=== PATIENT | female | born 1960 | race Caucasian/White ===

== ENCOUNTER 2017-07-13 12:21 | Inpatient (IN) | payer MEDICARE ==
[2017-07-13] MEDS ORDERED: SODIUM CHLORIDE 0.9% 500 ML IV STA (12:51)
[2017-07-13] MEDS ORDERED: SODIUM CHLORIDE 0.9% 1,000 ML IV STA (12:51)
--- NOTE | 2017-07-13 13:20 | ED ---
General Adult HPI - General Chief complaint: Neuro Symptoms/Deficit Stated complaint: Memory Loss,Dizziness Source: patient, RN notes reviewed, old records reviewed Mode of arrival: ambulatory Limitations: no limitations - History of Present Illness Initial comments: This is a 57-year-old female to the ER for evaluation regarding possible neurological. Patient having difficulty with memory retrograde amnesia difficulty finding her words and recent difficulty with walking, ataxia. Dizziness. Patient has history of high cholesterol no family history of heart disease her she herself is no high blood pressure [place] no diabetes no smoking history. Patient denies any weakness in arms or legs. Denies any other significant neurological complaint. No recent head trauma. Patient does suffer from some neck issues and chronic neck pain is Exie scheduled for MRI recently secondary to recent symptoms of dizziness and near syncope she's had with her neck issues. Otherwise patient denies any medications. No drugs or alcohol - Related Data Home Medications Medication Instructions Recorded Confirmed ARIPiprazole [ARIPiprazole Odt] 10 mg PO DAILY 07/13/17 07/13/17 Baclofen [Lioresal] 20 mg PO BID 07/13/17 07/13/17 Cholecalciferol [Vitamin D3] 5,000 unit PO DAILY 07/13/17 07/13/17 Levothyroxine Sodium [Synthroid] 75 mcg PO DAILY 07/13/17 07/13/17 Methylphenidate HCl [Ritalin] 20 mg PO DAILY 07/13/17 07/13/17 Omeprazole [Omeprazole] 40 mg PO DAILY 07/13/17 07/13/17 Rizatriptan Benzoate [Rizatriptan] 10 mg PO DAILY PRN 07/13/17 07/13/17 Simvastatin [Zocor] 40 mg PO HS 07/13/17 07/13/17 clonazePAM [KlonoPIN] 1 mg PO DAILY PRN 07/13/17 07/13/17 traMADol HCL [Ultram] 100 mg PO TID PRN 07/13/17 07/13/17 Allergies Allergy/AdvReac Type Severity Reaction Status Date / Time No Known Allergies Allergy Verified 07/13/17 13:16 Review of Systems ROS Statement: Those systems with pertinent positive or pertinent negative responses have been documented in the HPI. ROS Other: All systems not noted in ROS Statement are negative. Past Medical History Past Medical History: Fibromyalgia, Hyperlipidemia, Thyroid Disorder Additional Past Medical History / Comment(s): osteoporosis History of Any Multi-Drug Resistant Organisms: None Reported Past Surgical History: Hysterectomy, Orthopedic Surgery Past Psychological History: Anxiety, Depression Smoking Status: Never smoker Past Alcohol Use History: None Reported Past Drug Use History: None Reported General Exam - General Exam Comments Initial Comments: NIH of 0 Limitations: no limitations General appearance: alert, in no apparent distress Head exam: Present: atraumatic, normocephalic, normal inspection Eye exam: Present: normal appearance, PERRL, EOMI. Absent: scleral icterus, conjunctival injection, periorbital swelling ENT exam: Present: normal exam, mucous membranes moist Neck exam: Present: normal inspection. Absent: tenderness, meningismus, lymphadenopathy Respiratory exam: Present: normal lung sounds bilaterally. Absent: respiratory distress, wheezes, rales, rhonchi, stridor Cardiovascular Exam: Present: regular rate, normal rhythm, normal heart sounds. Absent: systolic murmur, diastolic murmur, rubs, gallop, clicks GI/Abdominal exam: Present: soft, normal bowel sounds. Absent: distended, tenderness, guarding, rebound, rigid Extremities exam: Present: normal inspection, full ROM, normal capillary refill. Absent: tenderness, pedal edema, joint swelling, calf tenderness Back exam: Present: normal inspection Neurological exam: Present: alert, oriented X3, CN II-XII intact Psychiatric exam: Present: normal affect, normal mood Skin exam: Present: warm, dry, intact, normal color. Absent: rash Course Vital Signs 07/13/17 07/13/17 07/13/17 12:28 13:33 14:07 Temperature 97.8 F Pulse Rate 74 98 87 Respiratory 16 18 18 Rate Blood Pressure 115/57 128/78 111/78 O2 Sat by Pulse 98 98 98 Oximetry - Reevaluation(s) Reevaluation #1: 07/13/17 13:20 Patient's memory, identification and voice and speech are improved Reevaluation #2: 07/13/17 14:29 All symptoms at this time appear to be resolved EKG Findings - EKG Comments: EKG Findings:: EKG shows normal sinus rhythm rate of 61, AL 166, QRS 76, QTC 404 Medical Decision Making - Medical Decision Making 57 female DF for evaluation of CVA like symptoms. Patient having short-term memory loss, retrograde amnesia, difficulty with speech and expressive aphasia, recent dizziness and ataxia. Patient will be admitted for neurological evaluation concerning CVA - Lab Data Result diagrams: 07/13/17 12:48 07/13/17 12:48 Lab Results 07/13/17 07/13/17 07/13/17 Range/Units 12:48 12:48 12:48 WBC 4.1 (3.8-10.6) k/uL RBC 4.42 (3.80-5.40) m/uL Hgb 13.5 (11.4-16.0) gm/dL Hct 41.2 (34.0-46.0) % MCV 93.3 (80.0-100.0) fL MCH 30.5 (25.0-35.0) pg MCHC 32.7 (31.0-37.0) g/dL RDW 12.6 (11.5-15.5) % Plt Count 174 (150-450) k/uL Neutrophils % 65 % Lymphocytes % 26 % Monocytes % 5 % Eosinophils % 1 % Basophils % 1 % Neutrophils # 2.7 (1.3-7.7) k/uL Lymphocytes # 1.1 (1.0-4.8) k/uL Monocytes # 0.2 (0-1.0) k/uL Eosinophils # 0.0 (0-0.7) k/uL Basophils # 0.0 (0-0.2) k/uL PT (9.0-12.0) sec INR (<1.2) APTT (22.0-30.0) sec Sodium 143 (137-145) mmol/L Potassium 4.0 (3.5-5.1) mmol/L Chloride 105 (98-107) mmol/L Carbon Dioxide 27 (22-30) mmol/L Anion Gap 11 mmol/L BUN 13 (7-17) mg/dL Creatinine 0.70 (0.52-1.04) mg/dL Est GFR (MDRD) Af Amer >60 (>60 ml/min/1.73 sqM) Est GFR (MDRD) Non-Af >60 (>60 ml/min/1.73 sqM) Glucose 113 H (74-99) mg/dL Plasma Lactic Acid [place] (0.7-2.0) mmol/L Calcium 9.9 (8.4-10.2) mg/dL Phosphorus 3.4 (2.5-4.5) mg/dL Magnesium 1.9 (1.6-2.3) mg/dL Total Bilirubin 0.5 (0.2-1.3) mg/dL AST 25 (14-36) U/L ALT 38 (9-52) U/L Alkaline Phosphatase 82 (38-126) U/L Total Creatine Kinase 42 (30-135) U/L CK-MB (CK-2) 0.4 (0.0-2.4) ng/mL CK-MB (CK-2) Rel Index 1.0 Troponin I <0.012 (0.000-0.034) ng/mL Total Protein 6.8 (6.3-8.2) g/dL Albumin 4.3 (3.5-5.0) g/dL 07/13/17 07/13/17 Range/Units 12:48 13:15 WBC (3.8-10.6) k/uL RBC (3.80-5.40) m/uL Hgb (11.4-16.0) gm/dL Hct (34.0-46.0) % MCV (80.0-100.0) fL MCH (25.0-35.0) pg MCHC (31.0-37.0) g/dL RDW (11.5-15.5) % Plt Count (150-450) k/uL Neutrophils % % Lymphocytes % % Monocytes % % Eosinophils % % Basophils % % Neutrophils # (1.3-7.7) k/uL Lymphocytes # (1.0-4.8) k/uL Monocytes # (0-1.0) k/uL Eosinophils # (0-0.7) k/uL Basophils # (0-0.2) k/uL PT 10.2 (9.0-12.0) sec INR 1.0 (<1.2) APTT 22.3 (22.0-30.0) sec Sodium (137-145) mmol/L Potassium (3.5-5.1) mmol/L Chloride (98-107) mmol/L Carbon Dioxide (22-30) mmol/L Anion Gap mmol/L BUN (7-17) mg/dL Creatinine (0.52-1.04) mg/dL Est GFR (MDRD) Af Amer (>60 ml/min/1.73 sqM) Est GFR (MDRD) Non-Af (>60 ml/min/1.73 sqM) Glucose (74-99) mg/dL Plasma Lactic Acid [place] 1.1 (0.7-2.0) mmol/L Calcium (8.4-10.2) mg/dL Phosphorus (2.5-4.5) mg/dL Magnesium (1.6-2.3) mg/dL Total Bilirubin (0.2-1.3) mg/dL AST (14-36) U/L ALT (9-52) U/L Alkaline Phosphatase (38-126) U/L Total Creatine Kinase (30-135) U/L CK-MB (CK-2) (0.0-2.4) ng/mL CK-MB (CK-2) Rel Index Troponin I (0.000-0.034) ng/mL Total Protein (6.3-8.2) g/dL Albumin (3.5-5.0) g/dL - Radiology Data Radiology results: report reviewed (CT brain is negative for acute disease), image reviewed Disposition Clinical Impression: Cerebrovascular accident Disposition: ADMITTED IP TO THIS [facility] Condition: Fair Referrals: Monie Calzada DO [Primary Care Provider] - 1-2 days
[2017-07-13 13:22] LABS: Basophils % (A) 1 %; CH 31.1; CHCM 33.5; Eosinophils % (A) 1 %; HCT 41.2 % (34.0-46.0); HDW 2.57; HGB 13.5 gm/dL (11.4-16.0); Luc # (Auto) 0.08; Luc % (Auto) 2; Lymphocytes # (A) 1.1 k/uL (1.0-4.8); Lymphocytes % (A) 26 %; MCH 30.5 pg (25.0-35.0); MCHC 32.7 g/dL (31.0-37.0); MCV 93.3 fL (80.0-100.0); Mean Platelet Volume 9.7; Monocytes # (A) 0.2 k/uL (0-1.0); Monocytes % (A) 5 %; Neutrophils # (A) 2.7 k/uL (1.3-7.7); Neutrophils % (A) 65 %; RBC 4.42 m/uL (3.80-5.40); RDW 12.6 % (11.5-15.5); WBC 4.1 k/uL (3.8-10.6); WBC (Perox) 4.13
[2017-07-13 13:35] LABS: ALT 38 U/L (9-52); AST 25 U/L (14-36); Alkaline Phosphatase 82 U/L (38-126); Anion Gap 11 mmol/L; Blood Urea Nitrogen 13 mg/dL (7-17); Calcium 9.9 mg/dL (8.4-10.2); Carbon Dioxide 27 mmol/L (22-30); Chloride 105 mmol/L (98-107); Glucose 113 mg/dL (74-99); Magnesium 1.9 mg/dL (1.6-2.3); Non-African American GFR(MDRD) >60 (>60 ml/min/1.73 sqM); Phosphorus 3.4 mg/dL (2.5-4.5); Sodium 143 mmol/L (137-145); Total Bilirubin 0.5 mg/dL (0.2-1.3); Total Protein 6.8 g/dL (6.3-8.2)
[2017-07-13 13:37] LABS: Partial Thromboplastin Time 22.3 sec (22.0-30.0); Prothrombin Time 10.2 sec (9.0-12.0)
--- NOTE | 2017-07-13 13:39 | CT ---
EXAMINATION TYPE: CT brain wo con DATE OF EXAM: 07/13/2017 COMPARISON: NONE INDICATION: Memory loss/Dizziness DLP: 1054.2 mGycm, Automated exposure control for dose reduction was used. CONTRAST: None CT of the brain is performed utilizing 3 mm thick sections through the posterior fossa and 3 mm thick sections through the remaining calvarium. Study is performed within 24 hours of arrival to the hosp ital. No abnormal hyperdensity is present to suggest an acute intracranial hemorrhage. No mass lesion is evident. No acute infarcts are evident. Ventricles and sulci are appropriate for the patient age. Paranasal sinuses and mastoid air cells within the [id number] are clear. IMPRESSIONS: 1. Normal CT Brain
[2017-07-13 13:41] LABS: Creatine Kinase 42 U/L (30-135)
[2017-07-13 13:54] LABS: Creatine Kinase MB 0.4 ng/mL (0.0-2.4); Troponin I <0.012 ng/mL (0.000-0.034)
[2017-07-13] MEDS ORDERED: ASPIRIN 325 MG TAB PO STA (14:24)
--- NOTE | 2017-07-13 15:48 | US ---
EXAMINATION TYPE: US carotid duplex BILAT DATE OF EXAM: 07/13/2017 COMPARISON: CLINICAL HISTORY: Stenosis. Memory loss EXAM MEASUREMENTS: RIGHT: Peak Systolic Velocity (PSV) cm/sec ----- Right CCA: 80.1 ----- Right ICA: 80.1 ----- Right ECA: 61.9 ICA/CCA ratio: 1.0 RIGHT: End Diastole cm/sec ----- Right CCA: 19.3 ----- Right ICA: 35.1 ----- Right ECA: 6.9 LEFT: Peak Systolic Velocity (PSV) cm/sec ----- Left CCA: 88.5 ----- Left ICA: 66.9 ----- Left ECA: 105.6 ICA/CCA ratio: 0.8 LEFT: End Diastole cm/sec ----- Left CCA: 27.6 ----- Left ICA: 20.8 ----- Left ECA: 9.8 VERTEBRALS (direction of flow): Right Vertebral: Antegrade Left Vertebral: Antegrade Rhythm: Normal No wall thickening, plaque, elevated velocities or significant stenosis seen Grayscale, color Doppler, spectral Doppler imaging performed of the carotid arteries IMPRESSION: No hemodynamic significant stenosis of the proximal internal carotid arteries bilaterall y by Doppler criteria, an indirect measurement of carotid stenosis
[2017-07-13 17:00] LABS: Appearance,Urine Clear (Clear); Bilirubin,Urine Negative (Negative); Glucose,Urine (UA) Negative (Negative); Ketones,Urine 1+ (Negative); Leukocyte Esterase,Urine Negative (Negative); Nitrite,Urine Negative (Negative); Protein,Urine Negative (Negative); Specific Gravity,Urine 1.005 (1.001-1.035); UA Billing (MACRO vs. MICRO) CHEM; Urobilinogen,Urine <2.0 mg/dL (<2.0)
[2017-07-13] MEDS ORDERED: clonazePAM 1 MG TAB PO PRN (17:53)
[2017-07-13] MEDS: SODIUM CHLORIDE 0.9% 1,000 ML IV SCH ×2 (19:00→23:49)
[2017-07-13] MEDS: BACLOFEN 10 MG TAB PO SCH (20:56)
[2017-07-13] MEDS: ATORVASTATIN 20 MG TAB PO SCH (20:56)
[2017-07-13] MEDS: traMADol 50 MG TAB PO PRN (23:46)
--- NOTE | 2017-07-14 00:51 | P.CNNES ---
History of Present Illness Consult date: 07/13/17 Reason for Consult: Patient admitted with memory loss and ataxia. History of Present Illness: This patient is a 57-year-old right-handed white female who apparently 2 weeks ago began experiencing symptoms of near syncope and anxiety. The symptoms seemed to progress over the 2 weeks and apparently yesterday she awoke at 4 AM in the morning and alerted her . According to the patient she began walking around the house opening and closing closet doors at 4 AM in the morning. Her tried to assist her and get her back to bed but she seemed to be very confused and disoriented. At times she also was not sure where her was or what his name was. The patient states that she was able to go to bed and woke up in the morning and had no memory of these events that had occurred at 4 AM in the morning. Her was very confused as to what had happened early in the morning when she was walking around the house and making no sense. Apparently the patient has a history of chronic neck pain. She is followed in the outpatient neurology clinic with Dr. Edgar who ordered an MRI of the cervical spine to be done. That is scheduled to be done early next week. Apparently she has been having symptoms of near syncope and dizziness. Her dizziness is describes as a sense of disequilibrium. The patient states that she gets episodes of tunnel vision and loses her sense of balance. She also feels as if she may nearly pass out. This has happened on multiple occasions over the past 2 weeks. Her did contact their daughter who is a nurse. She recommended that her mother should be taken immediately to the emergency room for evaluation early this morning. She was seen in the ER by Dr. Wilks, around 10 AM this morning. She was sent for a computed tomography scan of the brain which was reported normal. She underwent a carotid Doppler ultrasound which revealed no significant carotid artery stenosis. Patient was scheduled in the ER for an MRI of the brain with and without gadolinium. This hopefully will be done tomorrow morning. The patient states that she does suffer from migraine headaches as well as fibromyalgia. She is on disability due to these 2 conditions. She denies any previous history of seizures. By the time she was evaluated in the ER her symptoms of memory loss was improving. She was recommended admission to the hospital for further management. The ER physician felt the patient had evidence suggesting retrograde amnesia. She was also noted initially on admission is having signs of expressive aphasia. For these reasons she is being scheduled for MRI of the brain for further evaluation tomorrow. Neurology is now been consulted for further evaluation and recommendations. Review of Systems Constitutional: Denies chills, Denies fever Eyes: denies blurred vision, denies pain Ears, nose, mouth and throat: Denies headache, Denies sore throat Cardiovascular: Denies chest pain, Denies shortness of breath Respiratory: Denies cough Gastrointestinal: Denies abdominal pain, Denies diarrhea, Denies nausea, Denies vomiting Genitourinary: Denies dysuria, Denies hematuria Musculoskeletal: Denies myalgias Integumentary: Denies pruritus, Denies rash Neurological: Reports ataxia, Reports balance difficulties, Reports change in speech, Reports confusion, Reports gait dysfunction, Reports lack of coordination, Reports motor disturbance, Reports paresthesias, Reports tingling , Reports vertigo, Denies numbness, Denies weakness Psychiatric: Reports disorientation, Reports sleep disturbances, Denies anxiety , Denies depression Endocrine: Denies fatigue, Denies weight change Past Medical History Past Medical History: Fibromyalgia, Hyperlipidemia, Thyroid Disorder Additional Past Medical History / Comment(s): Chronic cervical pain with vertigo /near syncope-was to have MRI next week, chronic migraines, hypothyroid, osteoporosis. History of Any Multi-Drug Resistant Organisms: None Reported Past Surgical History: Cholecystectomy, Hysterectomy, Orthopedic Surgery Additional Past Surgical History / Comment(s): R partial knee replacement, colonoscopy. Past Anesthesia/Blood Transfusion Reactions: Postoperative Nausea & Vomiting ( PONV) Past Psychological History: Anxiety, Depression Additional Psychological History / Comment(s): Pt resides with her spouse. She is independent. Smoking Status: Never smoker Past Alcohol Use History: None Reported Past Drug Use History: None Reported - Past Family History Father Family Medical History: Cancer Additional Family Medical History / Comment(s): Father of lung cancer in his mid 50's. He was a heavy smoker. Mother Family Medical History: No Reported History Additional Family Medical History / Comment(s): Mother is 72 yrs old. Medications and Allergies Home Medications Medication Instructions Recorded Confirmed Type ARIPiprazole [ARIPiprazole Odt] 10 mg PO DAILY 07/13/17 07/13/17 History Baclofen [Lioresal] 20 mg PO BID 07/13/17 07/13/17 History Cholecalciferol [Vitamin D3] 5,000 unit PO DAILY 07/13/17 07/13/17 History Levothyroxine Sodium [Synthroid] 75 mcg PO DAILY 07/13/17 07/13/17 History Methylphenidate HCl [Ritalin] 20 mg PO DAILY 07/13/17 07/13/17 History Omeprazole [Omeprazole] 40 mg PO DAILY 07/13/17 07/13/17 History Rizatriptan Benzoate [Rizatriptan] 10 mg PO DAILY PRN 07/13/17 07/13/17 History Simvastatin [Zocor] 40 mg PO HS 07/13/17 07/13/17 History clonazePAM [KlonoPIN] 1 mg PO DAILY PRN 07/13/17 07/13/17 History traMADol HCL [Ultram] 100 mg PO TID PRN 07/13/17 07/13/17 History Allergies Allergy/AdvReac Type Severity Reaction Status Date / Time No Known Allergies Allergy Verified 07/13/17 13:16 Physical Examination - Vital Signs Vital Signs: Vital Signs Temp Pulse Pulse Pulse Resp BP BP 07/13/17 20:00 99.2 F 78 18 106/60 07/13/17 15:24 97 F L 61 17 107/52 07/13/17 15:10 97.4 F L 07/13/17 14:24 62 18 122/58 07/13/17 14:07 87 18 111/78 07/13/17 13:33 98 18 128/78 07/13/17 12:28 97.8 F 74 16 115/57 Pulse Ox 07/13/17 20:00 98 07/13/17 15:24 100 07/13/17 15:10 07/13/17 14:24 100 07/13/17 14:07 98 07/13/17 13:33 98 07/13/17 12:28 98 Intake and Output 07/13/17 07/13/17 07/13/17 06:59 14:59 22:59 Output Total 200 Balance -200 Output: Urine 200 Other: Voiding Method Toilet # Voids 1 Weight 49.895 kg Patient Weight 07/14/17 06:59 Weight 49.895 kg - Constitutional General appearance: average body habitus, cooperative - EENT EENT: PERRL, mucous membranes moist - Respiratory Respiratory: lungs clear, normal breath sounds - Cardiovascular Cardiovascular: regular rate, normal S1, normal S2 Extremities: no peripheral edema bilaterally - Gastrointestinal Gastrointestinal: normoactive bowel sounds - Integumentary Integumentary: normal - Neurologic Cranial nerve examination: PERRL, EOMI, VFF, V1/V2/V3 grossly intact, face symmetric, tongue midline, intact gag reflex, intact cough reflex, intact corneal reflex, normal palatal elevation Speech examination: intact Sensorimotor examination: intact Detailed motor examination: grossly full strength in all extremities Motor examination - right side: 5/5: biceps, triceps, wrist flexion, wrist extension, horticultural agent, hip flexors, knee extensors, dorsiflexion, toe extension (EHL) , plantarflexion Motor examination - left side: 5/5: biceps, triceps, wrist flexion, wrist extension, horticultural agent, hip flexors, knee extensors, dorsiflexion, toe extension (EHL) , plantarflexion Detailed sensory examination: intact Reflex and gait examination: intact Reflexes: 1+: ankle, bicep, knee, tricep - Musculoskeletal Musculoskeletal: no pain - Psychiatric Psychiatric: mood/affect appropriate, cooperative Results - Laboratory Findings CBC and BMP: 07/13/17 12:48 07/13/17 12:48 Abnormal Lab Findings: Abnormal Labs 07/13/17 07/13/17 12:48 16:45 Glucose 113 H Urine Ketones 1+ H Assessment and Plan (1) Transient global amnesia Current Visit: Yes Status: Acute SNOMED Code(s): 592568041 (2) TIA (transient ischemic attack) Current Visit: Yes Status: Acute SNOMED Code(s): 111447766 (3) Anxiety disorder Current Visit: Yes Status: Acute SNOMED Code(s): 963732567 (4) Degenerative disc disease, cervical Current Visit: Yes Status: Acute SNOMED Code(s): 99019616 Plan: This patient is a 57-year-old female who apparently over the last 2 weeks has been having multiple symptoms of dizziness and difficulty with her gait and balance. Patient does have a long-standing history of migraine headaches and neck pain. She was being scheduled for an MRI of the cervical spine by her neurologist as an outpatient next week. Apparently her symptoms of dizziness came to a boiling point early this morning. She states that at 4 AM she had awakened and was pacing around her home opening and closing doors. She did not make sense according to the who tried to help her get back to bed. She apparently did not recognize him. She was able to be close back to bed and she awoke in the morning and had no idea what had happened previously that night. The patient's daughter was contacted who is a nurse. She was very concerned and advise her father and mother to go immediately to the emergency room at [facility]. Patient was brought into the ER and was seen by Dr. Wilks. She underwent a computed tomography scan of the brain which was normal. She underwent carotid Doppler ultrasound which failed to reveal any significant carotid artery stenosis. She was admitted to Hospital. Her clinical history suggests possibility of transient global amnesia. She should be also evaluated for possibility of TIA. We will continue close neurological follow-up for this patient during this admission. She is scheduled to undergo MRI of the brain tomorrow and we will await these results. Her overall prognosis at this time remains very guarded. Time with Patient: Greater than 30
[2017-07-14] MEDS: ARIPiprazole 10 MG TAB PO SCH (06:04)
[2017-07-14] MEDS: PANTOPRAZOLE 40 MG TABLET PO SCH (06:05)
[2017-07-14] MEDS: LEVOTHYROXINE 75 MCG TAB PO SCH (06:05)
[2017-07-14 06:45] LABS: Cholesterol 128 mg/dL (<200); HDL Cholesterol 54 mg/dL (40-60)
[2017-07-14] MEDS: BACLOFEN 10 MG TAB PO SCH ×2 (08:31→19:35)
[2017-07-14] MEDS: ASPIRIN 325 MG TAB PO SCH (08:31)
[2017-07-14] MEDS: CHOLECALCIFEROL 1,000 UNIT TAB PO SCH (08:32)
--- NOTE | 2017-07-14 11:57 | P.HPIM ---
History of Present Illness H&P Date: 07/14/17 Mackenzie Uribe is a 57-year-old right-handed white female patient of Dr. Monie Calzada who presented to [facility] emergency room due to an episode of confusion. Patient apparently woke up at 4 AM in the morning and alerted her . According to the patient she began walking around the house opening and closing closet doors at 4 AM in the morning. Her tried to assist her and get her back to bed but she seemed to be very confused and disoriented. At times she also was not sure where her was or what his name was. The patient states that she was able to go to bed and woke up in the morning and had no memory of these event. Her did contact their daughter who is a nurse. She recommended that her mother should be taken immediately to the emergency room for evaluation early this morning. She was seen in the ER by Dr. Wilks, around 10 AM this morning. She was sent for a computed tomography scan of the brain which was reported normal. She underwent a carotid Doppler ultrasound which revealed no significant carotid artery stenosis. Patient was scheduled in the ER for an MRI of the brain with and without gadolinium. This hopefully will be done tomorrow morning. The patient states that she does suffer from migraine headaches as well as fibromyalgia. She is on disability due to these 2 conditions. She denies any previous history of seizures. By the time she was evaluated in the ER her symptoms of memory loss was improving. She was recommended admission to the hospital for further management. The ER physician felt the patient had evidence suggesting retrograde amnesia. She was also noted initially on admission is having signs of expressive aphasia. For these reasons she is being scheduled for MRI of the brain for further evaluation tomorrow. Neurology is now been consulted for further evaluation and recommendations. patient states that she has bipolar disorder or which she was started on Abilify 2 months ago and the dose was increased gradually, she is currently on Abilify 10 mg daily. She states that she was tried on multiple psychiatric medications in the past including Zyprexa which caused involuntary movements and Lamictal which caused skin rash, she states that she has been doing well on Abilify. Patient is followed by Dr. Edgar neurologist as outpatient he was scheduled to have an MRI of the cervical spine as outpatient recently in the last 2 weeks patient has been complaining of dizziness, near syncope, she also had episodes of tunnel vision. Past Medical History Past Medical History: Fibromyalgia, Hyperlipidemia, Thyroid Disorder Additional Past Medical History / Comment(s): Chronic cervical pain with vertigo /near syncope-was to have MRI next week, chronic migraines, hypothyroid, osteoporosis. History of Any Multi-Drug Resistant Organisms: None Reported Past Surgical History: Cholecystectomy, Hysterectomy, Orthopedic Surgery Additional Past Surgical History / Comment(s): R partial knee replacement, colonoscopy. Past Anesthesia/Blood Transfusion Reactions: Postoperative Nausea & Vomiting ( PONV) Past Psychological History: Anxiety, Depression Additional Psychological History / Comment(s): Pt resides with her spouse. She is independent. Smoking Status: Never smoker Past Alcohol Use History: None Reported Past Drug Use History: None Reported - Past Family History Father Family Medical History: Cancer Additional Family Medical History / Comment(s): Father of lung cancer in his mid 50's. He was a heavy smoker. Mother Family Medical History: No Reported History Additional Family Medical History / Comment(s): Mother is 72 yrs old. Medications and Allergies Home Medications Medication Instructions Recorded Confirmed Type ARIPiprazole [ARIPiprazole Odt] 10 mg PO DAILY 07/13/17 07/13/17 History Baclofen [Lioresal] 20 mg PO BID 07/13/17 07/13/17 History Cholecalciferol [Vitamin D3] 5,000 unit PO DAILY 07/13/17 07/13/17 History Levothyroxine Sodium [Synthroid] 75 mcg PO DAILY 07/13/17 07/13/17 History Methylphenidate HCl [Ritalin] 20 mg PO DAILY 07/13/17 07/13/17 History Omeprazole [Omeprazole] 40 mg PO DAILY 07/13/17 07/13/17 History Rizatriptan Benzoate [Rizatriptan] 10 mg PO DAILY PRN 07/13/17 07/13/17 History Simvastatin [Zocor] 40 mg PO HS 07/13/17 07/13/17 History clonazePAM [KlonoPIN] 1 mg PO DAILY PRN 07/13/17 07/13/17 History traMADol HCL [Ultram] 100 mg PO TID PRN 07/13/17 07/13/17 History Allergies Allergy/AdvReac Type Severity Reaction Status Date / Time No Known Allergies Allergy Verified 07/13/17 13:16 Physical Exam Vitals: Vital Signs Temp Pulse Pulse Pulse Resp BP BP 07/14/17 08:37 97.7 F 65 54 L 16 104/57 07/14/17 04:00 97.5 F L 54 L 54 L 18 88/57 07/14/17 01:24 60 18 94/58 07/14/17 00:00 97.8 F 59 L 18 90/49 07/13/17 20:00 99.2 F 78 18 106/60 07/13/17 15:24 97 F L 61 17 107/52 07/13/17 15:10 97.4 F L 07/13/17 14:24 62 18 122/58 07/13/17 14:07 87 18 111/78 07/13/17 13:33 98 18 128/78 07/13/17 12:28 97.8 F 74 16 115/57 Pulse Ox 07/14/17 08:37 98 07/14/17 04:00 95 07/14/17 01:24 96 07/14/17 00:00 96 07/13/17 20:00 98 07/13/17 15:24 100 07/13/17 15:10 07/13/17 14:24 100 07/13/17 14:07 98 07/13/17 13:33 98 07/13/17 12:28 98 Intake and Output 07/13/17 07/14/17 07/14/17 22:59 06:59 14:59 Intake Total 200 Output Total 200 700 Balance -200 -700 200 Intake: Oral 200 Output: Urine 200 700 Other: Voiding Method Toilet Toilet Toilet # Voids 1 Weight 51.8 kg in general patient is alert and oriented 3 in no apparent distress HEENT head normocephalic and atraumatic Neck is supple no JVD no goiter no lymphadenopathy and no carotid bruit Chest exam is clear to auscultation no crackles no wheezing Cardiac exam reveals regular heart sounds S1 and S2 no gallops no murmurs Abdomen is soft nontender no organomegaly with normal bowel sounds Extremity exam reveals no edema no cyanosis or clubbing Neurological examination at this time reveals no focal deficit speech is fluent patient is able to ambulate without any difficulty cranial nerves II through XII are intact there is no motor or surgery deficit at this time. Results CBC & Chem 7: 07/13/17 12:48 07/13/17 12:48 Labs: Abnormal Lab Results - Last 24 Hours (Table) 07/13/17 07/13/17 Range/Units 12:48 16:45 Glucose 113 H (74-99) mg/dL Urine Ketones 1+ H (Negative) Microbiology - Last 24 Hours (Table) 07/13/17 16:45 Urine Culture - Preliminary Urine,Voided Thrombosis Risk Factor Assmnt - Choose All That Apply Any of the Below Risk Factors Present?: Yes Each Factor Represents 1 point: Age 41-60 years Other Risk Factors: No Other congenital or acquired thrombophilia - If yes, enter type in comment: No Each Risk Factor Represents 5 Points: Stroke (< 1 month) Thrombosis Risk Factor Assessment Total Risk Factor Score: 6 Thrombosis Risk Factor Assessment Level: High Risk Assessment and Plan Assessment: #1 episode of confusion with anxiety patient was pacing around the house at 4 AM opening and closing doors, patient was taken back to bed by her , she did not recall the episode in the morning. She was evaluated in emergency room and was given a diagnosis of transient global amnesia, cause is still unclear. Currently patient is asymptomatic. #2 possible TIA, computed tomography scan on presentation normal awaiting MRI #3 history of bipolar disorder for which patient is maintained on Abilify 10 mg by mouth daily, patient is also maintained on Klonopin, Ritalin, for her psychiatric issues. She is also maintained on baclofen as a muscle relaxer and tramadol for pain and Maxalt for migraine headache, it's not clear whether the combination of all these medication can cause significant side effects Will consult psychiatry for opinion.
--- NOTE | 2017-07-14 13:09 | MR ---
EXAMINATION TYPE: MR brain wo/w con DATE OF EXAM: 07/14/2017 11:42 AM COMPARISON: Previous CT scan of the brain dated 07/13/2017 and a previous MRI of the brain dated 03/03. HISTORY: Headaches. TECHNIQUE: Multiplanar, multiecho imaging of the brain was obtained with and without intravenous adm inistration of 7.5 mL intravenous Gadavist. FINDINGS: Structures are unremarkable. There is a normal craniocervical junction. Echoplanar diffusion imaging is normal. There are normal vascular flow voids. The orbits are normal. There is no evidence of a CP angle mass lesion. There is no focal lesion, mass effect or midline shift identified. I do not see evidence of intracran ial blood. Following the intravenous administration of gadolinium, I do not see evidence of abnormal enhancement . IMPRESSION: NORMAL MRI OF THE BRAIN.
[2017-07-14 14:16] VITALS: BMI 19.0
[2017-07-14] MEDS: traMADol 50 MG TAB PO PRN (14:31)
[2017-07-14] MEDS: SODIUM CHLORIDE 0.9% 1,000 ML IV SCH ×2 (14:32→19:15)
[2017-07-14] MEDS: ATORVASTATIN 20 MG TAB PO SCH (19:35)
[2017-07-14] MEDS ORDERED: ONDANSETRON 4 MG/2 ML VIAL IVP PRN (20:00)
[2017-07-14] MEDS ORDERED: SUMAtriptan SUCCINATE 50 MG TAB PO PRN (20:00)
--- NOTE | 2017-07-14 21:13 | EEG ---
ELECTROENCEPHALOGRAM REPORT DATE OF EE07/14/2017. REFERRING PHYSICIAN: Dr. Craven. CONSULTING AND INTERPRETING PHYSICIAN: Dr. Kike Velazquez. INDICATION FOR EXAMINATION: This patient is a 57-year-old female being evaluated for episode of acute confusional state. The patient awakened at 4:00 a.m., very confused and disoriented. The patient with possible episode of transient global amnesia. AGE: 57. EEG FINDINGS: A routine 21-channel awake digital EEG recording was accomplished utilizing the 10-20 international system with bipolar and referential montages. The background activity in the most alert resting state consists of a low to medium amplitude, fairly well- developed and well-sustained 6-7 Hz activity over the posterior head regions. This posterior rhythm attenuates to eye opening. There is a small amount of low amplitude 18-20 Hz beta activity seen maximally over the anterior head regions. Muscle and movement artifact was observed on a few occasions during the tracing. Hyperventilation was not performed. Photic stimulation at flash frequencies of 2-30 Hz produced a minimal occipital driving response. No epileptiform discharges were seen. IMPRESSION: This EEG is mildly abnormal in diffuse fashion due to slight slowing of the EEG background. The EEG failed to reveal any focal, lateralized or epileptiform abnormalities. Clinical correlation is recommended. MMODL / IJN: [id number] /
[2017-07-15 00:28] VITALS: RESP 16
[2017-07-15] MEDS: PANTOPRAZOLE 40 MG TABLET PO SCH (06:04)
[2017-07-15] MEDS: LEVOTHYROXINE 75 MCG TAB PO SCH (06:04)
[2017-07-15 07:25] VITALS: BP 93/50; PULSE 61; TEMP 97.5
[2017-07-15] MEDS: SODIUM CHLORIDE 0.9% 1,000 ML IV SCH (08:11)
[2017-07-15] MEDS: traMADol 50 MG TAB PO PRN (09:51)
[2017-07-15] MEDS: ASPIRIN 325 MG TAB PO SCH (09:51)
[2017-07-15] MEDS: CHOLECALCIFEROL 1,000 UNIT TAB PO SCH (10:00)
[2017-07-15] MEDS: ARIPiprazole 10 MG TAB PO SCH (10:00)
[2017-07-15] MEDS: BACLOFEN 10 MG TAB PO SCH (10:00)
--- NOTE | 2017-07-15 11:28 | P.PN ---
Subjective Progress Note Date: 07/14/17 This patient is a 57 year old female being evaluated for an episode of TGA vs.TIA. She was able to complete MRI Brain today and we are awaiting these results. This patient likely experienced an episode of transient global amnesia. She underwent MRI of the brain today which is reviewed and is normal for her age. Patient also underwent routine EEG today which is reviewed and is within normal limits for her age. There is no evidence of any epileptiform discharges. She underwent a carotid Doppler ultrasound which was negative for any evidence of carotid artery stenosis. The patient appears to be back to normal level of function in terms of her cognition. She has been experiencing migraine headache today and has been treated for this is well. We reviewed the results of all of her testing today with the patient in detail. We would recommend the patient to start on one baby aspirin daily for secondary stroke prevention. She should follow-up with her regular neurologist for further evaluation of her neck pain when she is discharged. Her neurological examination at this time is nonfocal. We will continue close neurological follow-up with this patient during this admission. Objective - Vital Signs Vital signs: Vital Signs Temp 97.7 F 07/14/17 08:37 Pulse 54 L 07/14/17 08:37 Resp 18 07/14/17 08:37 BP 104/57 07/14/17 08:37 Pulse Ox 98 07/14/17 08:37 Intake & Output 07/13/17 07/14/17 07/14/17 18:59 06:59 18:59 Intake Total 200 Output Total 0 900 Balance 0 -900 200 Weight 49.895 kg 51.8 kg Intake: Oral 200 Output: Urine 0 900 Other: Voiding Method Toilet Toilet # Voids 0 1 - Exam Physical examination: PHYSICAL EXAMINATION: Patient is resting comfortably in bed. VITAL SIGNS: Blood pressure is [100/62]. Heart rate is [65]. Respiration is [16] . Temperature is [97.7]. HEENT: Head is atraumatic, neck is supple, there were no carotid bruits. CHEST: Lungs are clear to auscultation and percussion. CARDIAC: S1, S2 normal rate and rhythm. There is no murmur. ABDOMEN: Soft and nontender. Bowel sounds are present. EXTREMITIES: There is no pedal edema. Peripheral pulses are present. Neurological examination: Patient has a nonfocal neurological examination today. - Labs CBC & Chem 7: 07/13/17 12:48 07/13/17 12:48 Labs: Abnormal Lab Results - Last 24 Hours (Table) 07/13/17 07/13/17 Range/Units 12:48 16:45 Glucose 113 H (74-99) mg/dL Urine Ketones 1+ H (Negative) Microbiology - Last 24 Hours (Table) 07/13/17 16:45 Urine Culture - Preliminary Urine,Voided Assessment and Plan (1) Transient global amnesia Current Visit: Yes Status: Acute SNOMED Code(s): 318481012 (2) TIA (transient ischemic attack) Current Visit: Yes Status: Acute SNOMED Code(s): 585013670 (3) Anxiety disorder Current Visit: Yes Status: Acute SNOMED Code(s): 023522029 (4) Degenerative disc disease, cervical Current Visit: Yes Status: Acute SNOMED Code(s): 88422746 Plan: This patient is a 57-year-old female who apparently over the last 2 weeks has been having multiple symptoms of dizziness and difficulty with her gait and balance. Patient does have a long-standing history of migraine headaches and neck pain. She was being scheduled for an MRI of the cervical spine by her neurologist as an outpatient next week. Apparently her symptoms of dizziness came to a boiling point early this morning. She states that at 4 AM she had awakened and was pacing around her home opening and closing doors. She did not make sense according to the who tried to help her get back to bed. She apparently did not recognize him. She was able to be close back to bed and she awoke in the morning and had no idea what had happened previously that night. The patient's daughter was contacted who is a nurse. She was very concerned and advise her father and mother to go immediately to the emergency room at [facility]. Patient was brought into the ER and was seen by Dr. Wilks. She underwent a computed tomography scan of the brain which was normal. She underwent carotid Doppler ultrasound which failed to reveal any significant carotid artery stenosis. She was admitted to Hospital. Her clinical history suggests possibility of transient global amnesia. She should be also evaluated for possibility of TIA. Patient underwent MRI of the brain today which was entirely normal. Her carotid Doppler ultrasound study is normal. She completed routine EEG today which revealed no evidence of any epileptiform discharges. EEG was within normal limits for her age. Patient did suffer a migraine headache today. She has been treated for this. We will continue close neurological follow-up for this patient during this admission. She may be considered for discharge home tomorrow. Her overall prognosis at this time remains very guarded.
--- NOTE | 2017-07-15 12:39 | P.DS ---
Providers Date of admission: 07/13/17 14:24 Expected date of discharge: 07/15/17 Attending physician: Taqueria Craven Consults: 07/13/17 14:27 Consult Physician Routine Consulting Provider: Cecille Velazquez Consult Reason/Comments: cva Do you want consulting provider notified?: Yes 07/14/17 11:57 Consult Physician Routine Consulting Provider: Suni Yo Consult Reason/Comments: episode of confusion, rule out medication side effect Do you want consulting provider notified?: Yes Primary care physician: Monie Calzada Hospital Course: Diagnosis on discharge #1 episode of confusion with anxiety patient was pacing around the house at 4 AM opening and closing doors, patient was taken back to bed by her , she did not recall the episode in the morning. She was evaluated in emergency room and was given a diagnosis of transient global amnesia, cause is still unclear. Currently patient is asymptomatic. #2 possible TIA, computed tomography scan on presentation normal and also MRI of the brain was normal, differential diagnosis also includes possible side effect of multiple psychiatric medications. #3 history of bipolar disorder for which patient is maintained on Abilify 10 mg by mouth daily, patient is also maintained on Klonopin, Ritalin, for her psychiatric issues. She is also maintained on baclofen as a muscle relaxer and tramadol for pain and Maxalt for migraine headache, it's not clear whether the combination of all these medication can cause significant side effects Will consult psychiatry for opinion. Hospital course Mackenzie Uribe is a 57-year-old right-handed white female patient of Dr. Monie Calzada who presented to [facility] emergency room due to an episode of confusion. Patient apparently woke up at 4 AM in the morning and alerted her . According to the patient she began walking around the house opening and closing closet doors at 4 AM in the morning. Her tried to assist her and get her back to bed but she seemed to be very confused and disoriented. At times she also was not sure where her was or what his name was. The patient states that she was able to go to bed and woke up in the morning and had no memory of these event. Her did contact their daughter who is a nurse. She recommended that her mother should be taken immediately to the emergency room for evaluation early this morning. She was seen in the ER by Dr. Wilks, around 10 AM this morning. She was sent for a computed tomography scan of the brain which was reported normal. She underwent a carotid Doppler ultrasound which revealed no significant carotid artery stenosis. Patient was scheduled in the ER for an MRI of the brain with and without gadolinium. This hopefully will be done tomorrow morning. The patient states that she does suffer from migraine headaches as well as fibromyalgia. She is on disability due to these 2 conditions. She denies any previous history of seizures. By the time she was evaluated in the ER her symptoms of memory loss was improving. She was recommended admission to the hospital for further management. The ER physician felt the patient had evidence suggesting retrograde amnesia. She was also noted initially on admission is having signs of expressive aphasia. For these reasons she is being scheduled for MRI of the brain for further evaluation tomorrow. Neurology is now been consulted for further evaluation and recommendations. patient states that she has bipolar disorder or which she was started on Abilify 2 months ago and the dose was increased gradually, she is currently on Abilify 10 mg daily. She states that she was tried on multiple psychiatric medications in the past including Zyprexa which caused involuntary movements and Lamictal which caused skin rash, she states that she has been doing well on Abilify. Patient is followed by Dr. Edgar neurologist as outpatient he was scheduled to have an MRI of the cervical spine as outpatient recently in the last 2 weeks patient has been complaining of dizziness, near syncope, she also had episodes of tunnel vision. Patient was stable during this admission she did not have any recurrence of her symptoms she was evaluated by neurology Dr. Dhillon and was cleared to be discharged home she had normal MRI of the brain she was started on Ecotrin 81 mg by mouth daily. During this admission Ritalin was held patient was counseled to continue following up with her primary care physician Dr. Monie Calzada in the next 3-4 days also follow-up with neurology Dr. Edgar and follow -up with psychiatry for evaluation of her multiple psych medications Patient Condition at Discharge: Fair Plan - Discharge Summary Discharge Rx Participant: No New Discharge Prescriptions: New Aspirin EC [Ecotrin Low Dose] 81 mg PO DAILY #30 tablet. Continue clonazePAM [KlonoPIN] 1 mg PO DAILY PRN PRN Reason: Anxiety Cholecalciferol [Vitamin D3] 5,000 unit PO DAILY traMADol HCL [Ultram] 100 mg PO TID PRN PRN Reason: Pain Simvastatin [Zocor] 40 mg PO HS Levothyroxine Sodium [Synthroid] 75 mcg PO DAILY Rizatriptan Benzoate [Rizatriptan] 10 mg PO DAILY PRN PRN Reason: Migraine Headache Omeprazole 40 mg PO DAILY Baclofen [Lioresal] 20 mg PO BID ARIPiprazole [ARIPiprazole Odt] 10 mg PO DAILY Discontinued Methylphenidate HCl [Ritalin] 20 mg PO DAILY Discharge Medication List ARIPiprazole [ARIPiprazole Odt] 10 mg PO DAILY 07/13/17 [History] Baclofen [Lioresal] 20 mg PO BID 07/13/17 [History] Cholecalciferol [Vitamin D3] 5,000 unit PO DAILY 07/13/17 [History] Levothyroxine Sodium [Synthroid] 75 mcg PO DAILY 07/13/17 [History] Omeprazole 40 mg PO DAILY 07/13/17 [History] Rizatriptan Benzoate [Rizatriptan] 10 mg PO DAILY PRN 07/13/17 [History] Simvastatin [Zocor] 40 mg PO HS 07/13/17 [History] clonazePAM [KlonoPIN] 1 mg PO DAILY PRN 07/13/17 [History] traMADol HCL [Ultram] 100 mg PO TID PRN 07/13/17 [History] Aspirin EC [Ecotrin Low Dose] 81 mg PO DAILY #30 tablet. 07/15/17 [Rx] Follow up Appointment(s)/Referral(s): Monie Calzada DO [Primary Care Provider] - 1-2 days
== END 2017-07-15 13:30 | disposition home or self-care (01) | DRG 72 ==
LOC: EC 12:21 → 6SEL 14:24 → 5MS5E 07-14 20:26 → 6SEL 07-14 20:34 → 5MS5E 07-14 21:23
PROVIDERS: ADMIT Internal Medicine; ATTEND Internal Medicine
DX: G45.4 Transient global amnesia (principal); E03.9 Hypothyroidism, unspecified; E78.5 Hyperlipidemia, unspecified; F41.9 Anxiety disorder, unspecified; G43.809 Other migraine, not intractable, without status migrainosus; M50.30 Other cervical disc degeneration, unspecified cervical region; M79.7 Fibromyalgia; M81.0 Age-related osteoporosis without current pathological fracture; G89.29 Other chronic pain; F31.9 Bipolar disorder, unspecified; Z79.899 Other long term (current) drug therapy; Z96.651 Presence of right artificial knee joint
CPT/HCPCS: 36415; 70450; 70553; 80053; 80061; 81003; 82306; 82550; 82553; 83605; 83735; 84100; 84484; 85025; 85610; 85730; 87086; 93005; 93880; 95819; 96360; 99213; 99285

== ENCOUNTER → 2017-07-30 | Outpatient (CLI) | payer MEDICARE ==
[~2017-07-30] MED LIST: DENOSUMAB 60 MG/ML 1 ML SYRINGE SQ ONE
[2017-07-30 14:49] VITALS: BP 101/57; PULSE 97; RESP 18; TEMP 98
== END | disposition home or self-care (01) ==
LOC: PROCWHC3 14:06
PROVIDERS: ATTEND Family Medicine
DX: M81.0 Age-related osteoporosis without current pathological fracture (principal)
CPT/HCPCS: 96372; J0897

== ENCOUNTER 2017-10-17 09:46 | Day surgery (SDC) | payer MEDICARE ==
[2017-10-12 16:23] VITALS: BMI 18.6
[~2017-10-17 09:46] MED LIST changes: -DENOSUMAB 60 MG/ML 1 ML SYRINGE SQ ONE; +LACTATED RINGERS 1,000 ML IV SCH; +LIDOCAINE 1% 20 ML VIAL (10MG/ML) FOR IV START INTRADERMA PRN
[2017-10-17] MEDS ORDERED: LIDOCAINE 1% INJ 10MG/ML (20 ML MDV) ONE (11:15)
[2017-10-17] MEDS ORDERED: PROPOFOL 10 MG/ML 20 ML VIAL IV ONE (11:15)
[2017-10-17] MEDS ORDERED: MIDAZOLAM 2 MG/2 ML VIAL ONE (11:15)
[2017-10-17 11:18] VITALS: RESP 16; TEMP 98.2
--- NOTE | 2017-10-17 11:18 | P.GSHP ---
History of Present Illness H&P Date: 10/17/17 Chief Complaint: GERD, weight loss This is a 57-year-old female referred from Dr. Monie Calzada. Patient is today for EGD. She's had plates of GERD and weight loss and epigastric pain. Past Medical History Past Medical History: Fibromyalgia, Hyperlipidemia, Thyroid Disorder Additional Past Medical History / Comment(s): states "Epigastric pain and 30# unintentional wt loss over last 8-9 mos",Chronic cervical pain with vertigo/ near syncope- chronic migraines, hypothyroid, osteoporosis. History of Any Multi-Drug Resistant Organisms: None Reported Past Surgical History: Cholecystectomy, Hysterectomy, Orthopedic Surgery Additional Past Surgical History / Comment(s): R partial knee replacement, colonoscopy. Past Anesthesia/Blood Transfusion Reactions: Postoperative Nausea & Vomiting ( PONV) Smoking Status: Never smoker - Past Family History Father Family Medical History: Cancer Additional Family Medical History / Comment(s): Father of lung cancer in his mid 50's. He was a heavy smoker. Mother Family Medical History: No Reported History Additional Family Medical History / Comment(s): Mother is 72 yrs old. Medications and Allergies Home Medications Medication Instructions Recorded Confirmed Type Baclofen [Lioresal] 20 mg PO BID 07/13/17 10/17/17 History Cholecalciferol [Vitamin D3] 5,000 unit PO DAILY 07/13/17 10/17/17 History Levothyroxine Sodium [Synthroid] 100 mcg PO QAM 07/13/17 10/17/17 History Omeprazole 40 mg PO DAILY 07/13/17 10/17/17 History Rizatriptan Benzoate [Rizatriptan] 10 mg PO DAILY PRN 07/13/17 10/17/17 History Simvastatin [Zocor] 40 mg PO HS 07/13/17 10/17/17 History clonazePAM [KlonoPIN] 1 mg PO DAILY PRN 07/13/17 10/17/17 History traMADol HCL [Ultram] 50 mg PO BID PRN 07/13/17 10/17/17 History Aspirin EC [Ecotrin Low Dose] 81 mg PO DAILY #30 tablet. 07/15/17 10/12/17 Rx Calcium Carbonate [Calcium] 1,200 mg PO DAILY 07/30/17 10/17/17 History Methylphenidate HCl [Ritalin] 10 mg PO DAILY 10/12/17 10/17/17 History Sucralfate [Carafate] 1 gm PO QID PRN 10/12/17 10/17/17 History Allergies Allergy/AdvReac Type Severity Reaction Status Date / Time No Known Allergies Allergy Verified 10/12/17 16:15 Surgical - Exam - General well developed, no distress - Eyes PERRL - ENT normal pinna - Neck no masses - Respiratory normal expansion - Cardiovascular Rhythm: regular - Abdomen Abdomen: soft, non tender Assessment and Plan Assessment: GERD, nausea and weight loss. We'll perform EGD.
--- NOTE | 2017-10-17 11:31 | P.OP ---
Date of Procedure: 10/17/17 Preoperative Diagnosis: GERD Postoperative Diagnosis: Mild antral gastritis Small hiatal hernia Mild esophagitis Procedure(s) Performed: EGD Anesthesia: MAC Surgeon: Tyrese Leblanc Pathology: other (Antrum, esophagus) Condition: stable Disposition: PACU Description of Procedure: The patient's placed on the endoscopy table in the lateral position. She received IV sedation. The gastroscope placed oropharynx and passed in the esophagus and into the stomach. The scope was then placed through the pylorus. First and second portion of the duodenum appeared normal. Scope was then brought back the antrum and this was mildly inflamed. A biopsies performed. Scope was unretroflexed and remainder of the stomach appeared normal. There was a small hiatal hernia seen. The GE junction was at 39 cm. The distal esophagus appeared minimally inflamed a biopsies performed. The proximal esophagus appeared normal. Scope was withdrawn for patient.
[2017-10-17 12:19] VITALS: BP 93/61; PULSE 58
== END 2017-10-17 12:30 | disposition home or self-care (01) ==
LOC: ORWHC2ENDO 09:46
PROVIDERS: ATTEND Surgery
DX: K29.50 Unspecified chronic gastritis without bleeding (principal); K21.0 Gastro-esophageal reflux disease with esophagitis; K44.9 Diaphragmatic hernia without obstruction or gangrene; R63.4 Abnormal weight loss; E03.9 Hypothyroidism, unspecified; E78.5 Hyperlipidemia, unspecified; M81.0 Age-related osteoporosis without current pathological fracture; M79.7 Fibromyalgia; G43.909 Migraine, unspecified, not intractable, without status migrainosus; F41.9 Anxiety disorder, unspecified; F32.9 Major depressive disorder, single episode, unspecified; G89.29 Other chronic pain; M54.2 Cervicalgia; R42 Dizziness and giddiness; R55 Syncope and collapse; Z79.899 Other long term (current) drug therapy; Z79.82 Long term (current) use of aspirin
CPT/HCPCS: 88305; 88342; 43239; J2250; J2001; J2704

== ENCOUNTER → 2017-11-09 | Outpatient (CLI) | payer MEDICARE ==
--- NOTE | 2017-11-09 16:55 | CT ---
EXAMINATION TYPE: CT abdomen pelvis w con DATE OF EXAM: 11/09/2017 COMPARISON: NONE INDICATION: Abdominal and pelvic pain. Weight loss of 30 pounds over 9 months DLP: 393.40 mGycm, Automated exposure control for dose reduction was used. CONTRAST: 100 ml mL of Omnipaque 300. Study performed with Oral Contrast TECHNIQUE: Axial images were obtained from above the diaphragm to the pubic rami in the axial plane a t 5 mm thick sections. Reconstructed images are reviewed on the computer in the coronal plane. FINDINGS: Limited CT sections are obtained the lung bases. The lung bases are clear. CT ABDOMEN: Liver: Normal Spleen: Normal Pancreas: Normal Adrenal glands: The adrenal glands are normal. Gallbladder: Normal Kidneys: No masses are evident. No hydronephrosis is present. No cysts are present. Within this edouard perior pole left kidney and midpole posterior lateral right kidney is nonobstructing renal stone. Thi s measures 0.5 cm on the left and 0.3 cm on the right. Delayed images were obtained through the kidne ys, which remain unremarkable. Aorta: Normal Inferior vena cava: Normal. CT PELVIS: Fecal debris is through the colon. Loops of bowel distended with oral contrast are unremarkable There are loops of bowel which are incompletely distended or lack oral contrast limiting their evaluation. Appendix: Normal as visualized. Urinary bladder: Normal. Genitourinary structures: Uterus and ovaries are not identified. Osseous structures: No suspicious lytic or sclerotic lesions. IMPRESSIONS: 1. Nonobstructing bilateral renal stones. 2. Mild fecal retention. 3. No suspicious acute changes.
== END | disposition home or self-care (01) ==
LOC: RADCTMAIN 12:53
PROVIDERS: ATTEND Family Medicine
DX: N20.0 Calculus of kidney (principal); K59.00 Constipation, unspecified; R63.4 Abnormal weight loss; Z88.8 Allergy status to other drugs, medicaments and biological substances
CPT/HCPCS: 74177; Q9967

== ENCOUNTER → 2018-01-30 | Outpatient (CLI) | payer MEDICARE ==
[~2018-01-30] MED LIST changes: +DENOSUMAB 60 MG/ML 1 ML SYRINGE SQ NR; -LACTATED RINGERS 1,000 ML IV SCH; -LIDOCAINE 1% 20 ML VIAL (10MG/ML) FOR IV START INTRADERMA PRN
[2018-01-30 14:35] VITALS: BP 93/44; PULSE 73; RESP 16; TEMP 97.8
== END | disposition home or self-care (01) ==
LOC: PROCWHC3 14:15
PROVIDERS: ATTEND Family Medicine
DX: M81.0 Age-related osteoporosis without current pathological fracture (principal)
CPT/HCPCS: 96372; J0897

== ENCOUNTER → 2018-03-15 | Outpatient (CLI) | payer MEDICARE ==
--- NOTE | 2018-03-18 14:57 | MM ---
Reason for exam: screening (asymptomatic). Physical Findings: A clinical breast exam by your physician is recommended on an annual basis and results should be correlated with mammographic findings. MG 3D Screening Mammo W/Cad Bilateral CC and MLO view(s) were taken. The breast tissue is extremely dense which could obscure a lesion on mammography. No significant changes when compared with prior studies. ASSESSMENT: Benign, BI-RAD 2 RECOMMENDATION: Routine screening mammogram of both breasts in 1 year.
== END | disposition home or self-care (01) ==
LOC: RADMAMWWP 10:04
PROVIDERS: ATTEND Family Medicine
DX: Z12.31 Encounter for screening mammogram for malignant neoplasm of breast (principal)
CPT/HCPCS: 77063; 77067

== ENCOUNTER → 2018-08-19 | Outpatient (CLI) | payer MEDICARE ==
[~2018-08-19] MED LIST changes: -DENOSUMAB 60 MG/ML 1 ML SYRINGE SQ NR; +DENOSUMAB 60 MG/ML 1 ML SYRINGE SQ ONE
[2018-08-19 14:42] VITALS: BP 99/57; PULSE 77; RESP 16; TEMP 98.1
== END | disposition home or self-care (01) ==
LOC: PROCWHC3 13:58
PROVIDERS: ATTEND Family Medicine
DX: M81.0 Age-related osteoporosis without current pathological fracture (principal)
CPT/HCPCS: 96372; J0897

== ENCOUNTER → 2019-02-18 | Outpatient (CLI) | payer MEDICARE ==
[2019-02-18 14:17] VITALS: BP 90/51; PULSE 62; RESP 16; TEMP 97.7
== END | disposition home or self-care (01) ==
LOC: PROCWHC3 13:54
PROVIDERS: ATTEND Family Medicine
DX: M81.0 Age-related osteoporosis without current pathological fracture (principal)
CPT/HCPCS: 96372; J0897

== ENCOUNTER → 2019-09-04 | Outpatient (CLI) | payer MEDICARE ==
[2019-09-04 14:32] VITALS: BP 121/64; PULSE 80; RESP 16; TEMP 97.4
== END | disposition home or self-care (01) ==
LOC: PROCWHC3 14:23
PROVIDERS: ATTEND Physician Assistant Medical
DX: M81.0 Age-related osteoporosis without current pathological fracture (principal)
CPT/HCPCS: 96372; J0897

== ENCOUNTER → 2020-03-05 | Outpatient (CLI) | payer MEDICARE ==
[2020-03-05 09:14] VITALS: BP 91/60; PULSE 68; RESP 18; TEMP 97.8
== END | disposition home or self-care (01) ==
LOC: PROCWHC3 08:59
PROVIDERS: ATTEND Family Medicine
DX: M81.0 Age-related osteoporosis without current pathological fracture (principal)
CPT/HCPCS: 96372; J0897

== ENCOUNTER → 2020-06-23 | Outpatient (CLI) | payer MEDICARE ==
--- NOTE | 2020-06-25 10:29 | MM ---
Reason for exam: screening (asymptomatic). Last mammogram was performed 2 years and 3 months ago. Physical Findings: A clinical breast exam by your physician is recommended on an annual basis and results should be correlated with mammographic findings. MG 3D Screening Mammo W/Cad Bilateral CC and MLO view(s) were taken. Prior study comparison: March 15, 2018, bilateral MG 3d screening mammo w/cad. The breast tissue is extremely dense which could obscure a lesion on mammography. No significant changes when compared with prior studies. ASSESSMENT: Benign, BI-RAD 2 RECOMMENDATION: Routine screening mammogram of both breasts in 1 year.
== END | disposition home or self-care (01) ==
LOC: RADMAMWWP 15:35
PROVIDERS: ATTEND Family Medicine
DX: Z12.31 Encounter for screening mammogram for malignant neoplasm of breast (principal)
CPT/HCPCS: 77063; 77067

== ENCOUNTER → 2020-12-13 | Outpatient (CLI) | payer MEDICARE ==
[~2020-12-13] MED LIST changes: +DENOSUMAB 60 MG/ML 1 ML SYRINGE SQ NR; -DENOSUMAB 60 MG/ML 1 ML SYRINGE SQ ONE
[2020-12-13 14:26] VITALS: BP 89/55; PULSE 77; RESP 16; TEMP 98.5
== END ==
LOC: PROCWHC3 13:57
PROVIDERS: ATTEND Family Medicine
DX: M81.0 Age-related osteoporosis without current pathological fracture (principal)
CPT/HCPCS: 96372; J0897

== ENCOUNTER → 2023-10-10 | Outpatient (CLI) | payer MEDICARE ==
--- NOTE | 2023-10-20 21:09 | MR ---
EXAMINATION TYPE: MR knee RT wo con DATE OF EXAM: 10/10/2023 COMPARISON: Outside radiograph 10/02/2023 HISTORY: 63-year-old female M25.561, Rt knee pain TECHNIQUE: Multiplanar, multisequence imaging of the right knee is performed without IV contrast. FINDINGS: Postsurgical change with unicompartmental arthroplasty in the patellofemoral compartment. There is mild increased signal at the quadriceps tendon insertion suggesting some intrasubstance bates ge. There is additional postsurgical change with tendon coursing obliquely down medially, probably fo r patellar stabilization. There is some underlying congenital patella also noted. There is a moderate joint effusion with mild to moderate synovial thickening. The ACL, PCL, MCL, and LCL complex appear intact. There is degenerative spurring in both medial and lateral compartments. Moderate irregular cartilage thinning anterior weightbearing aspect medial femoral condyle. Additional degenerative cartilage sign al change throughout. Additional intercondylar spurs especially anteriorly from the lateral femoral c ondyle. In regards to the medial meniscus, there is an oblique tear involving the junction of the posterior h orn and body. Prominent intrasubstance change throughout the posterior horn and body of lateral meniscus. No Bowie's cyst. Normal popliteal artery anatomy. Mild generalized muscle atrophy. No suspicious bone marrow replaceme nt. IMPRESSION: 1. Patient is status post patellofemoral compartmental arthroplasty. There is also an extra tendon co ursing obliquely down from the lower pole of the patella likely for patellar stabilization. Also, und erlying congenital patella fabio is noted. 2. Moderate knee joint effusion with mild to moderate chronic synovitis. 3. Oblique tear involving the junction of the posterior horn and body of the medial meniscus. 4. Degenerative signal throughout the lateral meniscus but without definite tear at this time. 5. Mild to moderate medial and lateral compartment OA with scattered degenerative cartilage signal ch mitch throughout. The medial compartment shows moderate irregular cartilage loss along the anterior we ightbearing aspect of the femoral condyle. The lateral compartment shows a bulky anterior intercondyl ar spur from the femoral condyle.
== END | disposition home or self-care (01) ==
LOC: RADMRIMAIN 13:08
PROVIDERS: ATTEND Orthopaedic Surgery
DX: S83.241A Other tear of medial meniscus, current injury, right knee, initial encounter (principal); M65.9 Synovitis and tenosynovitis, unspecified; M17.11 Unilateral primary osteoarthritis, right knee

== ENCOUNTER → 2023-11-05 | Outpatient (CLI) | payer MEDICARE ==
[~2023-11-05] MED LIST changes: -DENOSUMAB 60 MG/ML 1 ML SYRINGE SQ NR; +REGADENOSON 0.4 MG/5 ML SYRINGE IV PRN
--- NOTE | 2023-11-05 11:29 | CA ---
Lexiscan Nuclear Stress Test Report Name: Mackenzie Uribe Exam Date: 11/05/2023 09:22 Exam Location: [facility] Ht (in): 65 Wt (lb): 128 BSA: 1.64 Ordering Phys: Al Morocho MD Referring Phys: CONCEPCION Technologist: Caesar Gibson Age: 63 Gender: F : 1960 Procedure CPT: Indications: I20.9 angina pectoris ICD-10 Codes: Patient History: CHEST PAIN, DIFFICULTY IN BREATHING, PALPITATIONS, ELEVATED CHOLESTEROL LEVELS Medications: SIMVASTATIN, SYNTHROID, WELLBUTRIN, BACLOFEN, LYSTERAL, KLONOPIN, VITAMINS Meds past 24 hrs: Pretest Chest Pain: STRESS TEST Lexiscan Protocol Exercise Duration (min:sec): 01:[address] Depressions (mm): Angina Score: Hurley Score: Resting HR (bpm): 54 Peak HR (bpm): 78 Resting BP (mmHg): 94 / 49 Peak BP (mmHg): 94 / 49 MPHR: 157 Target HR: 133 % MPHR: 50 METS: 1.0 Total Dose: Peak Dose: Atropine: Double Product: 7332 BP Response: Stress Termination: INFUSION COMPLETE Stress Symptoms: CHEST DISCOMFORT Stress Summary: ECG ANALYSIS Resting ECG: Stress ECG: CONCLUSIONS At baseline EKG showed normal sinus rhythm, normal axis, no significant ST or T wave abnormalities. Patient recieved IV infusion of Lexiscan 0.4mg and at peak infusion EKG showed no significant change from baseline. Conclusions: 1. Normal EKG response to Lexiscan infusion 2. Nuclear imaging to be reported separately. Dr. Glen Rodríguez DO (Electronically Signed) Final Date: 05 November 2023 11:28
--- NOTE | 2023-11-08 15:48 | NM ---
EXAMINATION TYPE: NM stress lexiscan cardiolite DATE OF EXAM: 11/08/2023 COMPARISON: NONE CLINICAL INDICATION: Female, 63 years old with history of I20.9 angina pectoris; TECHNIQUE: After the intravenous administration of 9.7 mCi Tc 99m Sestamibi - Cardiolite resting SPE CT images acquired 55 minutes post injection. The patient received 0.4mg Lexiscan, 24.8 mCi Tc 99m Sestamibi - Stress images obtained [address] injection FINDINGS: Review of stress and rest SPECT images demonstrates no distinct perfusion abnormality. There is limi tation due to prominent adjacent GI activity. Gated analysis shows normal wall motion with an estimat ed left ventricular ejection fraction of 57 %. TID is mildly increased at 1.23. IMPRESSION: While no discrete perfusion defect is identified, the transient ischemic dilatation ratio is mildly i ncreased at 1.23. This may be seen in the setting of multivessel, global inducible ischemia. Further workup as clinically indicated.
== END | disposition home or self-care (01) ==
LOC: RADNMMAIN 07:51
PROVIDERS: ATTEND Family Medicine
DX: I20.9 Angina pectoris, unspecified (principal)
CPT/HCPCS: 93017; 78452; A9500; J2785

== ENCOUNTER → 2023-12-07 | Outpatient (CLI) | payer MEDICARE ==
[2023-12-07] MEDS: DENOSUMAB 60 MG/ML 1 ML SYRINGE SQ NR (14:04)
[2023-12-07 14:21] VITALS: BP 114/64; PULSE 74; RESP 15; TEMP 97.4
== END ==
LOC: PROCWHC3 13:30
PROVIDERS: ATTEND Family Medicine
DX: M81.0 Age-related osteoporosis without current pathological fracture (principal)
CPT/HCPCS: 96372; J0897

== ENCOUNTER → 2024-06-20 | Outpatient (CLI) | payer MEDICARE ==
[2024-06-20 14:26] VITALS: BP 102/69; PULSE 67; RESP 16; TEMP 98
[2024-06-20] MEDS: DENOSUMAB 60 MG/ML 1 ML SYRINGE SQ NR (14:27)
== END ==
LOC: PROCWHC3 13:49
PROVIDERS: ATTEND Family Medicine
DX: M81.0 Age-related osteoporosis without current pathological fracture (principal)
CPT/HCPCS: 96372

== ENCOUNTER → 2024-08-11 | Outpatient (CLI) | payer OTHER ==
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
== END | disposition home or self-care (01) ==
LOC: RADUSWWP 13:52
PROVIDERS: ATTEND Family Medicine
DX: N63.20 Unspecified lump in the left breast, unspecified quadrant (principal)

== ENCOUNTER → 2025-01-30 | Outpatient (CLI) | payer MEDICARE, OTHER ==
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
== END | disposition home or self-care (01) ==
LOC: RADCTMAIN 15:50
PROVIDERS: ATTEND Family Medicine
DX: K59.00 Constipation, unspecified (principal)
CPT/HCPCS: 74177; Q9967

== ENCOUNTER 2025-03-17 22:13 | Emergency (ER) | payer OTHER, MEDICARE ==
[2025-03-17 22:19] VITALS: RESP 18
[2025-03-17 23:16] LABS: Basophils # (A) 0.05 10*3/uL (0.00-0.10); Basophils % (A) 0.4 %; Eosinophils # (A) 0.05 10*3/uL (0.04-0.35); Eosinophils % (A) 0.4 %; HCT 41.8 % (37.2-46.3); HGB 14.8 g/dL (12.0-15.0); Lymphocytes # (A) 1.36 10*3/uL (0.90-5.00); Lymphocytes % (A) 10.6 %; MCH 31.3 pg (27.0-32.0); MCHC 35.4 g/dL (32.0-37.0); MCV 88.4 fL (80.0-97.0); Mean Platelet Volume 11.7 fL (9.5-12.2); Monocytes # (A) 1.11 10*3/uL (0.20-1.00); Monocytes % (A) 8.6 %; Neutrophils # (A) 10.24 10*3/uL (1.80-7.70); Neutrophils % (A) 79.7 %; Platelet Count 222 10*3/uL (140-440); RBC 4.73 10*6/uL (4.10-5.20); RDW 12.7 % (11.5-14.5); WBC 12.85 10*3/uL (4.50-10.00)
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
[2025-03-17 23:33] LABS: ALT 20 U/L (4-34); AST 25 U/L (14-36); African American GFR (CKD) >90 (>60 ml/min/1.73 sqM); Albumin 4.5 g/dL (3.5-5.0); Alkaline Phosphatase 97 U/L (38-126); Amylase 72 U/L (30-110); Anion Gap 12 mmol/L; Blood Urea Nitrogen 13 mg/dL (7-17); Calcium 10.2 mg/dL (8.4-10.2); Carbon Dioxide 27 mmol/L (22-30); Chloride 100 mmol/L (98-107); Glucose 105 mg/dL (74-99); Lipase 294 U/L (23-300); Non-African American GFR(CKD) >90 (>60 ml/min/1.73 sqM); Potassium 3.9 mmol/L (3.5-5.1); Sodium 139 mmol/L (137-145); Total Bilirubin 0.8 mg/dL (0.2-1.3)
[2025-03-17] MEDS: SODIUM CHLORIDE 0.9% 1,000 ML IV ONE (23:59)
[2025-03-18] MEDS: KETOROLAC 15 MG/ML 1 ML VIAL IVP STA
--- NOTE | 2025-03-18 00:29 | XR ---
EXAM: XR Abdomen, 1 View CLINICAL HISTORY: pt arrives to ED for c/o constipation, N/V, abd pain x 2 days. TECHNIQUE: Frontal supine view of the abdomen/pelvis. COMPARISON: CT abdomen and pelvis from 01/30/2025. FINDINGS: Gastrointestinal tract: Moderate amount of stool in the colon. Dilatation of the colon measuring about 7.5 cm. Organs: Cholecystectomy clips. Bones/joints: Unchanged. IMPRESSION: Dilatation of the transverse colon, likely related to of moderate amount of stool in the colon
--- NOTE | 2025-03-18 01:32 | CT ---
EXAM: CT Abdomen and Pelvis With Intravenous Contrast CLINICAL HISTORY: pt arrives to ED for c/o constipation, N/V, abd pain x 2 days. TECHNIQUE: Axial computed tomography images of the abdomen and pelvis with intravenous contrast. Coronal and sagittal reconstructions are performed. CTDI is 11.2 mGy and DLP is 530.3 mGy-cm. This CT exam was performed using one or more of the following dose reduction techniques: automated exposure control, adjustment of the mA and/or kV according to patient size, and/or use of iterative reconstruction technique. COMPARISON: 01/30/2025 FINDINGS: Lung bases: Unremarkable. No mass. No consolidation. ABDOMEN: Liver: Unremarkable. No mass. Gallbladder and bile ducts: Cholecystectomy clips. Pancreas: Unremarkable. No mass. No ductal dilation. Spleen: Unremarkable. No splenomegaly. Adrenals: Unremarkable. No mass. Kidneys and ureters: 2 x 4 mm nonobstructing lateral upper pole right renal stone. Stomach and bowel: Moderate amount of stool in the colon over distending the colon to 5.5 cm in maximal diameter, less in amount and dilatation. Loops of proximal small bowel in left abdomen is also mildly dilated to 2 point 5 cm in maximal diameter. No mucosal thickening. PELVIS: Appendix: Normal appendix. Bladder: Unremarkable. No mass. Reproductive: No acute findings. ABDOMEN and PELVIS: Intraperitoneal space: Unremarkable. No free air. No significant fluid collection. Bones/joints: Osteopenia. Mild degenerative changes. Mild upper lumbar scoliosis convexed to the right. Soft tissues: Unremarkable. Vasculature: Unremarkable. No abdominal aortic aneurysm. Lymph nodes: Unremarkable. No enlarged lymph nodes. IMPRESSION: Moderate amount of stool in the colon over distending the colon to 5.5 cm in maximal diameter, less in amount and dilatation compared to on the prior study.
[2025-03-18 02:27] VITALS: BP 102/60; PULSE 84; TEMP 98.1
== END 2025-03-18 02:27 | disposition home or self-care (01) ==
LOC: EC 22:13
DX: K59.00 Constipation, unspecified (principal)
CPT/HCPCS: 36415; 80053; 82150; 83605; 83690; 85025; 74018; 74177; 99284; 96374; 96361 ×2; J1885; Q9967

== ENCOUNTER → 2025-03-30 | Outpatient (CLI) | payer OTHER, MEDICARE ==
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
== END | disposition home or self-care (01) ==
LOC: RADCTMAIN 12:53
PROVIDERS: ATTEND Surgery
DX: K63.89 Other specified diseases of intestine (principal)
CPT/HCPCS: 74177; Q9967

== ENCOUNTER 2025-04-06 09:28 | Day surgery (SDC) | payer OTHER, MEDICARE ==
[2025-04-06] MEDS: IV FLUID CONTINUATION 1,000 ML IV ONE (10:10)
[2025-04-06 10:20] VITALS: TEMP 97.3
[2025-04-06] MEDS: LACTATED RINGERS 1,000 ML IV SCH (10:27)
[2025-04-06] MEDS ORDERED: PROPOFOL 10 MG/ML 20 ML VIAL IV ONE (10:38)
[2025-04-06] MEDS ORDERED: LIDOCAINE 2% (PF) 20 MG/ML 5 ML VIAL ONE (10:38)
[2025-04-06 11:21] VITALS: BP 120/77; PULSE 57; RESP 16
--- NOTE | 2025-04-06 14:26 | P.OP ---
Date of Procedure: 04/06/25 Preoperative Diagnosis: 1. GERD 2. Screening Postoperative Diagnosis: 1. Gastritis 2. Normal Colon Procedure(s) Performed: 1. EGD with Biopsy 2. Colonoscopy Anesthesia: MAC Surgeon: Lupillo Chaney Pathology: other (Antrum Biopsy) Condition: stable Disposition: PACU Description of Procedure: Informed consent was obtained. The procedure, its risks, benefits, and alternatives were discussed. The patient was placed in the left lateral decubitus position. The patient was sedated. The endoscope was inserted into the oropharynx and guided under direct vision into the esophagus, stomach, and duodenum. The duodenal bulb and second portion were unremarkable. The scope was withdrawn to the stomach and retroflexed. There was no increased fluid, food or secretions in the upper gastrointestinal tract. There was very minimal, nonspecific, patchy antral erythema and gastritis noted. Biopsies were obtained for Helicobacter pylori. No erosions or ulcers. The scope was withdrawn to the esophagus. No Barretts or esophagitis. The patient tolerated the procedure very well. The patient was then transferred to the recovery area in good condition. There were no apparent complications. After informed consent was obtained, the patient was placed in the left lateral position and sedated. Monitoring was provided throughout the entire procedure. Digital rectal exam was performed revealing normal sphincter tone and no external hemorrhoids. The colonoscope was inserted into rectum and advanced under direct visualization, without difficulty, to the cecum, where the cecal strap, appendiceal orifice, and the ileocecal valve were identified. The quality of the preparation was good. The colonoscope was then withdrawn while carefully examining the mucosa. The colonic mucosa appeared normal with normal vascularity and haustral markings. No masses, polyps, AVM/s or diverticula were seen. On retroflexed view in the rectum, there were no internal hemorrhoids. The endoscope was removed and the procedure terminated. The patient tolerated the procedure well without complications.
== END 2025-04-06 11:35 | disposition home or self-care (01) ==
LOC: ORWHC2ENDO 09:28
PROVIDERS: ATTEND Surgery
DX: Z12.11 Encounter for screening for malignant neoplasm of colon (principal); K29.70 Gastritis, unspecified, without bleeding; K21.9 Gastro-esophageal reflux disease without esophagitis
CPT/HCPCS: 88305; 45378; 43239; J2704; J2003